=== PATIENT | male | born 1960 | race Caucasian/White ===

== ENCOUNTER 2020-11-06 17:31 | Inpatient (IN) ==
[2020-11-06] MEDS ORDERED: AMIODARONE 150 MG/3 ML VIAL ONE ×2 (17:37→17:41)
[2020-11-06] MEDS ORDERED: HEPARIN 5,000 UNIT/1 ML VIAL ONE ×2 (17:39→18:31)
[2020-11-06] MEDS ORDERED: fentaNYL 100 MCG/2 ML VIAL ONE ×2 (17:40→18:06)
[2020-11-06] MEDS ORDERED: HEPARIN DRIP 25,000 UNITS/500 ML PREMIX IV ONE (17:41)
[2020-11-06] MEDS ORDERED: AMIODARONE 450 MG/9 ML VIAL IV ONE (17:42)
[2020-11-06] MEDS ORDERED: HYDROmorphone 2 MG/1 ML VIAL ONE (17:50)
[2020-11-06] MEDS ORDERED: LIDOCAINE 1% 20 ML VIAL ONE (18:00)
[2020-11-06] MEDS ORDERED: MIDAZOLAM 2 MG/2 ML VIAL ONE (18:06)
[2020-11-06] MEDS ORDERED: ASPIRIN 325 MG TABLET PO STA (18:13)
[2020-11-06] MEDS ORDERED: ONDANSETRON 4 MG/2 ML VIAL IV STA (18:13)
[2020-11-06] MEDS ORDERED: HEPARIN 5,000 UNIT/1 ML VIAL IV ONE (18:13)
[2020-11-06] MEDS ORDERED: HYDROmorphone 2 MG/1 ML VIAL IV STA (18:13)
[2020-11-06] MEDS ORDERED: AMIODARONE INJ 150 MG in DEXTROSE 5% 100 ML IV ONE (18:15)
[2020-11-06] MEDS ORDERED: TIROFIBAN 5,000 MCG/100 ML PREMIX IV ONE (18:16)
[2020-11-06 18:21] LABS: Basophils # 0.1 10*3/uL (0.0-0.2); Basophils % 0.8 % (0.0-0.8); Eosinophils # 0.6 10*3/uL (0.0-0.87); Eosinophils % 4.6 % (0.00-10.9); Hematocrit 41.6 VOL% (42.0-52.0); Hemoglobin 14.2 GM/DL (14.0-18.0); Immature Granulocytes % 0.7 %; Immature Granulocytes Absolute 0.09 #; Lymphocytes # 4.3 10*3/uL (1.4-4.0); Lymphocytes % 33.2 % (21.2-54.2); Mean Corpuscular HGB Conc 34.1 GM/DL (32-36); Mean Corpuscular Volume 104.8 FL (87-102); Mean Platelet Volume 9.6 FL (9.6-12.0); Monocytes % 10.1 % (1.7-12.7); Neutrophils % 50.6 % (38.7-73.9); Platelet Count 286 T/CUMM (130-400); Red Blood Count 3.97 MC/CUMM (3.8-5.5); Red Cell Distribution Width 14.2 % (9.3-17.3)
[2020-11-06] MEDS ORDERED: HEPARIN DRIP 25,000 UNITS/500 ML PREMIX IV SCH (18:30)
[2020-11-06] MEDS ORDERED: AMIODARONE INJ 450 MG in DEXTROSE 5% 241 ML IV SCH (18:30)
[2020-11-06 18:40] LABS: Albumin 4.1 G/DL (3.4-5.0); Bilirubin,Total 0.6 MG/DL (0.2-1.0); Calcium 9.2 MG/DL (8.5-10.1); Osmolality,Calculated 279.8 MOS/KG (273-304); Total Protein 7.9 G/DL (6.4-8.2)
[2020-11-06] MEDS ORDERED: HEPARIN 1,000 UNIT/1 ML VIAL IV STA (18:42)
[2020-11-06] MEDS ORDERED: TIROFIBAN 5,000 MCG/100 ML PREMIX IV SCH (19:00)
[2020-11-06] MEDS ORDERED: TICAGRELOR 90 MG TABLET ONE (19:00)
[2020-11-06] MEDS ORDERED: FUROSEMIDE 40 MG/4 ML VIAL ONE (19:07)
[2020-11-06] MEDS ORDERED: MAGNESIUM SULF RIDER 2 GM in PREMIX 1 EACH IV PRN (19:42)
[2020-11-06] MEDS ORDERED: MAGNESIUM SULF RIDER 4 GM in PREMIX 1 EACH IV PRN (19:42)
[2020-11-06] MEDS: TICAGRELOR 90 MG TABLET PO SCH (20:09)
[2020-11-06 20:33] LABS: CKMB % 2.8 %
[2020-11-06 20:35] LABS: Troponin I 1.82 NG/ML (0.00-0.045)
[2020-11-06 20:40] LABS: Risk Ratio 5.17; VLDL CHOLESTEROL 25.8 MG/DL
[2020-11-06] MEDS: carvediloL 6.25 MG TABLET PO SCH (21:06)
[2020-11-06] MEDS: PANTOPRAZOLE 40 MG TABLET PO SCH (21:06)
[2020-11-06] MEDS: ALBUTEROL/IPRATROPIUM 3 ML NEB RESP TX SCH (21:17)
[2020-11-07] MEDS: ALBUTEROL/IPRATROPIUM 3 ML NEB RESP TX SCH ×7 (00:20→23:42)
[2020-11-07] MEDS ORDERED: diphenhydrAMINE CAP 25 MG CAPSULE PO PRN (00:52)
[2020-11-07] MEDS ORDERED: AMIODARONE INJ 450 MG in DEXTROSE 5% 241 ML IV SCH (01:00)
[2020-11-07] MEDS: diphenhydrAMINE CAP 25 MG CAPSULE PO PRN ×2 (01:15→21:06)
[2020-11-07] MEDS: carvediloL 6.25 MG TABLET PO SCH ×3 (02:22→15:08)
[2020-11-07 05:43] LABS: Basophils % 0.3 % (0.0-0.8); Eosinophils # 0.1 10*3/uL (0.0-0.87); Eosinophils % 0.3 % (0.00-10.9); Hematocrit 38.9 VOL% (42.0-52.0); Hemoglobin 12.9 GM/DL (14.0-18.0); Immature Granulocytes % 0.6 %; Immature Granulocytes Absolute 0.09 #; Lymphocytes # 1.2 10*3/uL (1.4-4.0); Lymphocytes % 7.4 % (21.2-54.2); Mean Corpuscular HGB Conc 33.2 GM/DL (32-36); Mean Corpuscular Volume 106.6 FL (87-102); Mean Platelet Volume 9.3 FL (9.6-12.0); Neutrophils % 83.4 % (38.7-73.9); Platelet Count 226 T/CUMM (130-400); Red Blood Count 3.65 MC/CUMM (3.8-5.5); Red Cell Distribution Width 14.6 % (9.3-17.3); White Blood Count 15.5 T/CUMM (4-12)
[2020-11-07 06:10] LABS: Albumin 3.5 G/DL (3.4-5.0); Bilirubin,Total 1.4 MG/DL (0.2-1.0); CKMB % 6.6 %; Osmolality,Calculated 272.2 MOS/KG (273-304); Potassium 4.6 MMOL/L (3.5-5.1); Thyroid Stimulating Hormone 2.77 uIU/ml (0.358-3.74); Total Protein 7.4 G/DL (6.4-8.2)
[2020-11-07 06:13] LABS: Troponin I 14.3 NG/ML (0.00-0.045)
[2020-11-07] MEDS ORDERED: KETOROLAC 30 MG/1 ML VIAL IV ONE (08:18)
[2020-11-07] MEDS ORDERED: LEVOFLOXACIN INJ 500 MG in PREMIX 1 EACH IV SCH (08:30)
[2020-11-07] MEDS: ASPIRIN CHEW 81 MG TABLET PO SCH (08:43)
[2020-11-07] MEDS: TICAGRELOR 90 MG TABLET PO SCH ×2 (08:43→21:06)
[2020-11-07] MEDS: allopurinoL 300 MG TABLET PO SCH (08:43)
[2020-11-07] MEDS: PANTOPRAZOLE 40 MG TABLET PO SCH (08:44)
[2020-11-07] MEDS: ASCORBIC ACID 500 MG TABLET PO SCH ×2 (08:45→21:06)
[2020-11-07] MEDS: EZETIMIBE 10 MG TABLET PO SCH (08:45)
[2020-11-07] MEDS: FOLIC ACID 1 MG TABLET PO SCH ×2 (08:45→21:06)
[2020-11-07] MEDS: THIAMINE 100 MG TABLET PO SCH ×2 (08:45→21:06)
[2020-11-07] MEDS ORDERED: SERTRALINE 100 MG TABLET PO SCH (09:00)
[2020-11-07] MEDS: HYDROmorphone 2 MG/1 ML VIAL IV PRN ×4 (10:26→21:07)
[2020-11-07] MEDS: CYANOCOBALAMIN 100 MCG TABLET PO SCH ×2 (10:27→21:06)
[2020-11-07] MEDS ORDERED: AMIODARONE 200 MG TABLET PO SCH (10:30)
[2020-11-07] MEDS ORDERED: ENALAPRIL 2.5 MG TABLET PO SCH (11:00)
[2020-11-07] MEDS: AMPICILLIN/SULBACTAM 3,000 MG in SODIUM CHLORIDE 0.9% 100 ML IV SCH ×2 (11:55→17:28)
[2020-11-07 12:33] LABS: CKMB % 6.6 %
[2020-11-07 12:37] LABS: Troponin I 20.1 NG/ML (0.00-0.045)
[2020-11-07] MEDS ORDERED: ALBUTEROL 0.63 MG/3 ML NEB RESP TX SCH (13:00)
[2020-11-07] MEDS ORDERED: chlordiazePOXIDE 10 MG CAPSULE PO PRN (14:58)
[2020-11-07] MEDS: ENALAPRIL 5 MG TABLET PO SCH (22:19)
[2020-11-08] MEDS: AMPICILLIN/SULBACTAM 3,000 MG in SODIUM CHLORIDE 0.9% 100 ML IV SCH ×5 (00:22→23:35)
[2020-11-08] MEDS: HYDROmorphone 2 MG/1 ML VIAL IV PRN ×2 (01:40→06:16)
[2020-11-08] MEDS: ALBUTEROL/IPRATROPIUM 3 ML NEB RESP TX SCH ×6 (03:48→23:32)
[2020-11-08 05:04] LABS: Basophils % 0.5 % (0.0-0.8); Eosinophils # 0.3 10*3/uL (0.0-0.87); Eosinophils % 3.5 % (0.00-10.9); Hematocrit 36.7 VOL% (42.0-52.0); Hemoglobin 12.2 GM/DL (14.0-18.0); Immature Granulocytes % 0.5 %; Immature Granulocytes Absolute 0.04 #; Lymphocytes % 22.7 % (21.2-54.2); Mean Corpuscular HGB Conc 33.2 GM/DL (32-36); Mean Platelet Volume 9.4 FL (9.6-12.0); Monocytes % 11.5 % (1.7-12.7); Neutrophils % 61.3 % (38.7-73.9); Platelet Count 194 T/CUMM (130-400); Red Blood Count 3.43 MC/CUMM (3.8-5.5); Red Cell Distribution Width 14.4 % (9.3-17.3); White Blood Count 8.6 T/CUMM (4-12)
[2020-11-08 05:49] LABS: Osmolality,Calculated 273.1 MOS/KG (273-304); Potassium 4.6 MMOL/L (3.5-5.1)
[2020-11-08] MEDS: EZETIMIBE 10 MG TABLET PO SCH (08:33)
[2020-11-08] MEDS: CYANOCOBALAMIN 100 MCG TABLET PO SCH ×2 (08:33→20:25)
[2020-11-08] MEDS: carvediloL 12.5 MG TABLET PO SCH ×2 (08:34→20:27)
[2020-11-08] MEDS: TICAGRELOR 90 MG TABLET PO SCH ×2 (08:34→20:26)
[2020-11-08] MEDS: allopurinoL 300 MG TABLET PO SCH (08:34)
[2020-11-08] MEDS: ENALAPRIL 5 MG TABLET PO SCH ×2 (08:34→20:26)
[2020-11-08] MEDS: PANTOPRAZOLE 40 MG TABLET PO SCH (08:34)
[2020-11-08] MEDS: ASCORBIC ACID 500 MG TABLET PO SCH ×2 (08:34→20:26)
[2020-11-08] MEDS: FOLIC ACID 1 MG TABLET PO SCH ×2 (08:34→20:27)
[2020-11-08] MEDS: THIAMINE 100 MG TABLET PO SCH ×2 (08:34→20:27)
[2020-11-08] MEDS: ASPIRIN CHEW 81 MG TABLET PO SCH (08:36)
[2020-11-09] MEDS: ALBUTEROL/IPRATROPIUM 3 ML NEB RESP TX SCH ×3 (03:45→11:37)
[2020-11-09] MEDS: AMPICILLIN/SULBACTAM 3,000 MG in SODIUM CHLORIDE 0.9% 100 ML IV SCH ×2 (05:36→11:33)
[2020-11-09 05:47] LABS: Basophils % 0.6 % (0.0-0.8); Eosinophils # 0.4 10*3/uL (0.0-0.87); Eosinophils % 6.1 % (0.00-10.9); Hematocrit 31.7 VOL% (42.0-52.0); Immature Granulocytes % 0.5 %; Immature Granulocytes Absolute 0.03 #; Lymphocytes # 1.3 10*3/uL (1.4-4.0); Lymphocytes % 21.4 % (21.2-54.2); Mean Corpuscular HGB Conc 34.7 GM/DL (32-36); Mean Corpuscular Volume 102.6 FL (87-102); Monocytes % 11.6 % (1.7-12.7); Neutrophils % 59.8 % (38.7-73.9); Platelet Count 169 T/CUMM (130-400); Red Blood Count 3.09 MC/CUMM (3.8-5.5); Red Cell Distribution Width 14.1 % (9.3-17.3); White Blood Count 6.2 T/CUMM (4-12)
[2020-11-09 06:04] LABS: Calcium 8.6 MG/DL (8.5-10.1)
[2020-11-09] MEDS: EZETIMIBE 10 MG TABLET PO SCH (08:53)
[2020-11-09] MEDS: CYANOCOBALAMIN 100 MCG TABLET PO SCH (08:53)
[2020-11-09] MEDS: ASCORBIC ACID 500 MG TABLET PO SCH (08:54)
[2020-11-09] MEDS: THIAMINE 100 MG TABLET PO SCH (08:54)
[2020-11-09] MEDS: allopurinoL 300 MG TABLET PO SCH (08:54)
[2020-11-09] MEDS: ASPIRIN CHEW 81 MG TABLET PO SCH (08:54)
[2020-11-09] MEDS: PANTOPRAZOLE 40 MG TABLET PO SCH (08:56)
[2020-11-09] MEDS: FOLIC ACID 1 MG TABLET PO SCH (08:57)
[2020-11-09] MEDS: TICAGRELOR 90 MG TABLET PO SCH (08:57)
[2020-11-09] MEDS: carvediloL 12.5 MG TABLET PO SCH (08:57)
[2020-11-09] MEDS: ENALAPRIL 5 MG TABLET PO SCH (08:58)
[2020-11-09 11:56] VITALS: BP 143/76
== END 2020-11-09 14:34 | disposition home or self-care (01) | DRG 246 ==
LOC: EDBD → EDUNIT# → N.ED 17:31 → N.CC 18:43 → N.EDINP 18:50 → N.CC 19:06 → N.TELEN 11-08 14:04
PROVIDERS: ADMIT Family Medicine; ATTEND Family Medicine
PROC: CLCCHCL (ICD-10-PCS; 2020-11-06 18:15)